=== PATIENT | female | born 1960 | race Caucasian/White ===

== ENCOUNTER 2020-09-28 11:59 | Emergency (ER) | payer MEDICARE, MEDICAID, SELFPAY ==
[2020-09-28 14:39] VITALS: BP 121/61; PULSE 74; RESP 18; TEMP 36.9; O2SAT 93; BMI 32.1
--- NOTE | 2020-09-28 14:51 | PC.NURSE ---
patient a&o to baseline, caregiver from [facility] at bedside, vitals stable, rectal exam performed by provider, will continue to monitor.
--- NOTE | 2020-09-28 15:08 | ECG_ITS ---
Test Reason : WEAKNESS Blood Pressure : / mmHG Vent. Rate : 072 BPM Atrial Rate : 072 BPM P-R Int : 196 ms QRS Dur : 100 ms QT Int : 426 ms P-R-T Axes : 044 -24 050 degrees QTc Int : 466 ms Normal sinus rhythm Low voltage QRS Incomplete right bundle branch block Nonspecific T wave abnormality Left axis deviation Abnormal ECG No previous ECGs available Referred By: Guerita Sexton Electronically Signed By:ANGELA DEL RIO MD
--- NOTE | 2020-09-28 15:10 | ED_ITS ---
HPI - General Adult General Chief complaint: General Medical Stated complaint: ? UTI, BLACK STOOL Time Seen by Provider: 09/28/20 14:29 Source: patient Mode of arrival: wheelchair History of Present Illness HPI narrative: 59-year-old female with a past medical history of confusion, seizures, right-sided paralysis wheelchair-bound, expressive aphasia, depression, seizures, multiple UTI's presenting [facility], sent in by PCP for evaluation of dysuria, dark urine, black stools, diarrhea, poor p.o. intake/decreased appetite x a few days. Patient also reports intermittent headaches and abdominal pain. Denies fever, chills, CP/SOB, exposure to COVID- 19 Denies taking anticoagulation Onset (ago): day(s) Related Data Allergies Allergy/AdvReac Type Severity Reaction Status Date / Time No Known Allergies Allergy Verified 09/28/20 15:07 Review of Systems Review of Systems: Constitutional: No Fever, No Chills, No Fatigue, No Malaise, +anorexia Cardiovascular: No Chest Pain, No SOB, No Dyspnea on Exertion, No Edema Respiratory: No Cough, No Sputum, No Wheezing, No Dyspnea Gastrointestinal: No Nausea, No Vomiting, + Diarrhea, No Constipation, +Abd ominal pain, +black stool Genitourinary: No irregular bleeding, +Dysuria, No Urinary Frequency, No H ematuria Musculoskeletal: No joint pain, No Myalgias, No Joint Swelling Skin: No Skin Lesions, No rash Neuro: No Weakness, No Numbness, No Paresthesias,+ Headache Yes all other systems are reviewed and are negative Neurologic: Reports confusion Psychiatric: Psychiatric: Reports confusion PMFSH Past Medical History Attestation statement: The following information was validated with the patient. Medical History (Updated 09/28/20 @ 18:49 by EMILY Fry) Confusion Constipation Depression Expressive aphasia Iron deficiency Paralysis of right lower extremity Paralysis of right upper extremity Seizures UTI (urinary tract infection) Social History Social History Alcohol intake: never Smoked in Last 30 Days: No Use of substances other than those prescribed or required for medical reasons: No Advance Directives: No Advance Directives Information Provided: Yes Physical Exam Vital Signs: Vital Signs: Last Vital Signs Temp 98.3 F 09/28/20 19:41 Pulse 66 09/28/20 19:41 Resp 18 09/28/20 19:41 BP 132/67 09/28/20 19:41 Pulse Ox 99 09/28/20 19:41 Body Mass Index 32.1 Const: General: cooperative and confusion Orientation/consciousness: confus ion Limitations: no limitations HENMT: Head: Yes normal to inspection Ears: hearing grossly normal bilaterally General nose exam: Normal external nose present Face and sinus: Yes normal facial exam Eyes: General: appearance normal, both eyes and all related structures EOM: EOMs intact bilaterally Neck: Neck: Yes normal visual inspection Resp: Effort & Inspection: normal respiratory effort Auscultation: clear to auscultation bilaterally Cardio: Rate: regular rate Heart sounds: S1 normal heart sound present and S2 normal heart sound present GI: Inspection: Yes normal to inspection Palpation (GI): Soft to palpation, Tenderness to palpation present (GI) suprapubicly, no guarding and not rigid : General: Yes no CVA tenderness Back/Spine/Pelvis: Back: no CVA tenderness Skin: Rashes: no rashes Wounds: no wounds Neuro: General: confusion Extrem: General: Yes normal to inspection Course Course Course Narrative: -H&H stable, no leukocytosis, labs otherwise unremarkable --occult stool positive > will obtain CT AP -1844--CT without evidence of active GI bleeding. Right lower pole renal mass with CT features consistent with benign angiomyolipoma -2030--UA negative > plan to DC patient home back to [facility] Worrisome signs and symptoms and strict return precautions discussed with patient and staff member at bedside, they verbalized understanding of feel safe for discharge home to follow-up with GI Medical Decision Making MDM Narrative Medical decision making narrative: 59-year-old female with a past medical histor y of confusion, seizures, right-sided paralysis wheelchair-bound, expressive aphasia, depression, seizures, multiple UTI's presenting [facility], sent in by PCP for evaluation of dysuria, dark urine, black stools, diarrhea, poor p.o. intake/decreased appetite x a few days. On exam VSS, NAD/well- appearing abdomen soft with suprapubic/lower ttp, no rebound or guarding. No CVAT. Concern for UTI vs GI bleed vs viral syndrome/COVID-19 vs dehydration. Lower concern for appendicitis/diverticulitis, or cholecystitis/pancreatitis Plan: Labs, UA, occult stool, COVID-19, IVF, reassess Lab Data Result diagrams: 09/28/20 15:31 09/28/20 15:31 Labs: Lab Results 09/28/20 09/28/20 09/28/20 Range/Units 15:31 15:31 15:31 WBC 6.1 (4.8-10.8) X10*3/uL RBC 4.51 (4.20-5.50) X10*6/uL Hgb 12.1 (12.0-16.0) g/dl Hct 40.1 (37-47) % MCV 88.9 (80-98) fL MCH 26.8 L (27.0-33.0) pg MCHC 30.2 L (31.0-35.0) g/dl RDW 24.0 H (11.0-16.0) % Plt Count 213 (160-400) X10*3/uL MPV 10.2 (9.4-12.3) fL Immature Gran % (Auto) 0.2 (0.0-0.4) % Neut % (Auto) 65.4 (45-73) % Lymph % (Auto) 25.1 (20-40) % [place] % (Auto) 6.8 (2-11) % Eos % (Auto) 2.0 (0-4) % Baso % (Auto) 0.5 (0-2) % Lymph # (Auto) 1.5 (1.2-4.9) X10*3/uL [place] # (Auto) 0.4 (0.1-1.2) X10*3/uL Eos # (Auto) 0.1 (0.0-0.4) X10*3/uL Baso # (Auto) 0.0 (0.0-0.2) X10*3/uL Abs Immat Gran (auto) 0.01 (0.00-0.03) X10*3/uL Absolute Neuts (auto) 4.0 (2.0-8.3) X10*3/uL Absolute Nucleated RBC 0.000 (0.0-0.012) X10*3/uL Nucleated RBC % (auto) 0.0 (0.0-0.2) /100WBC Hold Blue Top SEE NOTE Sodium 140 (135-145) mmol/L Potassium 3.8 (3.3-5.1) mmol/l Chloride 108 (96-108) mmol/L Carbon Dioxide 23 (22-29) mmol/L Anion Gap 13 (12-20) BUN 15 (9-16) mg/dL Creatinine 1.06 (0.5-1.4) mg/dL Estim Creat Clear Calc 67.7 Estimated GFR 53 Random Glucose 81 (60-115) mg/dL Calcium 9.2 (8.4-10.2) mg/dL Magnesium 2.0 (1.6-2.6) mg/dL Total Bilirubin 0.4 (0.0-1.0) mg/dL Direct Bilirubin 0.2 (0.0-0.5) mg/dL AST 15 (5-31) U/L ALT 16 (0-31) U/L Alkaline Phosphatase 99 (39-117) U/L Total Protein 6.9 (6.5-8.0) g/dL Albumin 4.2 (3.5-5.0) g/dL Lipase 47 (8-78) U/L Urine Color Urine Appearance Urine pH (5.0-8.0) Ur Specific [place] (1.005-1.025) Urine Protein (NEG-TRACE) MG/DL Urine Glucose (UA) (NEG) MG/DL Urine Ketones (NEG) MG/DL Urine Blood (NEG) Urine Nitrite (NEG) Ur Leukocyte Esterase (NEG) Urine RBC (0) /HPF Urine WBC (0-4) /HPF Ur Squamous Epith Cells /LPF Urine Bacteria /LPF Stool Occult Blood (NEG) Coronavirus (PCR) (Negative) Influenza Type A (PCR) (Negative) Influenza Type B (PCR) (Negative) RSV RNA Qual (PCR) (Negative) 09/28/20 09/28/20 09/28/20 Range/Units 15:31 15:31 19:20 WBC (4.8-10.8) X10*3/uL RBC (4.20-5.50) X10*6/uL Hgb (12.0-16.0) g/dl Hct (37-47) % MCV (80-98) fL MCH (27.0-33.0) pg MCHC (31.0-35.0) g/dl RDW (11.0-16.0) % Plt Count (160-400) X10*3/uL MPV (9.4-12.3) fL Immature Gran % (Auto) (0.0-0.4) % Neut % (Auto) (45-73) % Lymph % (Auto) (20-40) % [place] % (Auto) (2-11) % Eos % (Auto) (0-4) % Baso % (Auto) (0-2) % Lymph # (Auto) (1.2-4.9) X10*3/uL [place] # (Auto) (0.1-1.2) X10*3/uL Eos # (Auto) (0.0-0.4) X10*3/uL Baso # (Auto) (0.0-0.2) X10*3/uL Abs Immat Gran (auto) (0.00-0.03) X10*3/uL Absolute Neuts (auto) (2.0-8.3) X10*3/uL Absolute Nucleated RBC (0.0-0.012) X10*3/uL Nucleated RBC % (auto) (0.0-0.2) /100WBC Hold Blue Top Sodium (135-145) mmol/L Potassium (3.3-5.1) mmol/l Chloride (96-108) mmol/L Carbon Dioxide (22-29) mmol/L Anion Gap (12-20) BUN (9-16) mg/dL Creatinine (0.5-1.4) mg/dL Estim Creat Clear Calc Estimated GFR Random Glucose (60-115) mg/dL Calcium (8.4-10.2) mg/dL Magnesium (1.6-2.6) mg/dL Total Bilirubin (0.0-1.0) mg/dL Direct Bilirubin (0.0-0.5) mg/dL AST (5-31) U/L ALT (0-31) U/L Alkaline Phosphatase (39-117) U/L Total Protein (6.5-8.0) g/dL Albumin (3.5-5.0) g/dL Lipase (8-78) U/L Urine Color YELLOW Urine Appearance HAZY Urine pH 6.0 (5.0-8.0) Ur Specific [place] 1.010 (1.005-1.025) Urine Protein NEG (NEG-TRACE) MG/DL Urine Glucose (UA) NEG (NEG) MG/DL Urine Ketones NEG (NEG) MG/DL Urine Blood TRACE (NEG) Urine Nitrite NEG (NEG) Ur Leukocyte Esterase NEG (NEG) Urine RBC 5-9 H (0) /HPF Urine WBC 0 (0-4) /HPF Ur Squamous Epith Cells 3+ /LPF Urine Bacteria 2+ /LPF Stool Occult Blood POS (NEG) Coronavirus (PCR) NEGATIVE (Negative) Influenza Type A (PCR) NEGATIVE (Negative) Influenza Type B (PCR) NEGATIVE (Negative) RSV RNA Qual (PCR) NEGATIVE (Negative) Discharge Plan Discharge Clinical Impression: Occult blood in stools Patient Disposition: Home, Self-Care Instructions: Rectal Bleeding (ED) Additional Instructions: Your blood work was reassuring today in the ED Your stool did show hidden blood in it You need to follow-up with a GI specialist within the week You likely need a endoscopy and colonoscopy to further evaluate If her symptoms persist or worsen, you have a large bloody bowel movement, or large bowel movements of dark stool, become lightheaded or dizzy, or of chest pain shortness of breath, or abdominal pain you need to return to the ED immediately Referrals: Mingo Albright MD [Physician] - 5 days
[2020-09-28] MEDS: 0.9 % Sodium Chloride 1,000 ML 999 ML IVCONT (15:33)
--- NOTE | 2020-09-28 15:33 | PC.NURSE ---
iv inserted, labs drawn, covid swab performed, ekg performed, vss, caregiver at bedside, will contiue to monitor.
[2020-09-28 15:49] LABS: MANUAL DIFF FLAG NO; OBS Int Ctl Valid YES; OBS1 POS (NEG)
[2020-09-28 16:13] LABS: Hematocrit 40.1 % (37-47); Hemoglobin 12.1 g/dl (12.0-16.0); Imm Gran Pct Auto 0.2 % (0.0-0.4); Mean Corpuscular HGB Conc 30.2 g/dl (31.0-35.0); Mean Corpuscular Hemoglobin 26.8 pg (27.0-33.0); Mean Corpuscular Volume 88.9 fL (80-98); Mean Platelet Volume 10.2 fL (9.4-12.3); Neutrophils Percent Auto 65.4 % (45-73); Platelet Count 213 X10*3/uL (160-400); Red Blood Count 4.51 X10*6/uL (4.20-5.50); White Blood Count 6.1 X10*3/uL (4.8-10.8)
[2020-09-28 16:14] LABS: Basophils Percent Auto 0.5 % (0-2); Eosinophils Absolute Auto 0.1 X10*3/uL (0.0-0.4); Imm Gran Abs Auto 0.01 X10*3/uL (0.00-0.03); Lymphocytes Absolute Auto 1.5 X10*3/uL (1.2-4.9); Lymphocytes Percent Auto 25.1 % (20-40); Monocytes Absolute Auto 0.4 X10*3/uL (0.1-1.2); Monocytes Percent Auto 6.8 % (2-11)
[2020-09-28 16:22] LABS: Alanine Aminotransferase 16 U/L (0-31); Albumin Level 4.2 g/dL (3.5-5.0); Alkaline Phosphatase 99 U/L (39-117); Anion Gap 13 (12-20); Aspartate Amino Transferase 15 U/L (5-31); Bilirubin Direct 0.2 mg/dL (0.0-0.5); Bilirubin Total 0.4 mg/dL (0.0-1.0); Blood Urea Nitrogen 15 mg/dL (9-16); Calcium 9.2 mg/dL (8.4-10.2); Carbon Dioxide 23 mmol/L (22-29); Chloride 108 mmol/L (96-108); Creatinine Clr Calc Pharmacy 67.7; Estimated Glomerular Filt Rate 53; Glucose Random 81 mg/dL (60-115); Lipase 47 U/L (8-78); Potassium 3.8 mmol/l (3.3-5.1); Sodium 140 mmol/L (135-145); Total Protein 6.9 g/dL (6.5-8.0)
--- NOTE | 2020-09-28 16:32 | CT_ITS ---
EXAMINATION: CT ABDOMEN AND PELVIS WITH CONTRAST CLINICAL INFORMATION: GI bleeding COMPARISON: None TECHNIQUE: Multidetector volumetric images were obtained from the superior aspect of the liver through the pubic symphysis following administration 85 mL of Omnipaque 350 intravenous contrast. Sagittal and coronal reformatted images were obtained on the technologist's workstation. Oral contrast: No This CT examination was performed using dose optimization techniques as appropriate, variously including the following: *Automated exposure control *Adjustment of mA and/or kV according to patient size (this includes techniques or standardized protocols for targeted exams where dose is matched to indication/reason for exam; i.e. extremities or head) *Use of iterative reconstruction technique DLP: 1139 mGy-cm FINDINGS: LUNG BASES: The visualized lung bases are unremarkable. Small nonenlarged right preparacardiac lymph nodes are present. LIVER, GALLBLADDER, AND BILIARY TREE: The liver is normal in size, shape, and attenuation. No focal hepatic lesion or biliary ductal dilatation is present. The gallbladder is unremarkable with no evidence of radiopaque gallstones, gallbladder wall thickening, or obvious pericholecystic inflammatory changes. PANCREAS: Unremarkable. SPLEEN: Unremarkable. ADRENAL GLANDS: Unremarkable. KIDNEYS AND URETERS: The kidneys are normal in size, shape, and attenuation. There is a mass present at the right lower pole measuring 2.5 x 2.2 x 2.4 cm. The mass contains soft tissue density fat density and some punctate calcium and is consistent with a benign angiomyolipoma. No other renal masses are seen. No hydronephrosis, hydroureter, or calculi seen. No perinephric stranding. BLADDER: The bladder wall is symmetrically thickened but no masses or calcifications seen GASTROINTESTINAL TRACT: Scattered colonic diverticula are present without diverticulitis. The small and large bowel are unremarkable. The appendix is unremarkable. No evidence of active bleeding seen without extravasation of contrast into bowel lumen. . ABDOMINAL WALL: No significant hernia is appreciated. Tiny periumbilical hernia seen containing only fat. LYMPH NODES: No retroperitoneal lymphadenopathy is present. VASCULAR: Infrarenal calcific aortoiliac calcified plaque is present. No aneurysm is seen. PELVIC VISCERA: Patient status post hysterectomy with no abnormal mass or free pelvic fluid seen OSSEOUS STRUCTURES: Degenerative changes present at L5-S1. CT/CT abdomen pelvis w con IMPRESSION: 1. No evidence of active GI bleeding. 2. Right lower pole renal mass with CT features consistent with benign angiomyolipoma 3. Colonic diverticulosis without diverticulitis 4. Status post hysterectomy
[2020-09-28 16:47] LABS: Influenza A PCR NEGATIVE (Negative); Influenza B PCR NEGATIVE (Negative); Resp Syncy Virus RNA Qual PCR NEGATIVE (Negative); SARS COV2 PCR INHOUSE NEGATIVE (Negative)
--- NOTE | 2020-09-28 17:39 | PC.NURSE ---
PT TO CT SCAN
[2020-09-28] MEDS: iohexoL 350 MG/ML 100 ML INFUS..BTL IV (17:49)
[2020-09-28 18:28] VITALS: BP 141/72; PULSE 67; RESP 18; TEMP 36.7; O2SAT 94
--- NOTE | 2020-09-28 18:29 | PC.NURSE ---
patient alert to baseline, pt attempted to use bedpan as she felt she needed to urinate- pt had been incontinent of urine prior to using the bedpan, vials stable, caregiver at bedside, will continue to monitor.
[2020-09-28 19:41] VITALS: BP 132/67; PULSE 66; RESP 18; TEMP 36.8; O2SAT 99
[2020-09-28 19:48] LABS: Glucose Urine UA NEG (NEG); Leukocyte Esterase Urine NEG (NEG); Nitrite Urine NEG (NEG); Urine Blood TRACE (NEG); Urine Ketones NEG (NEG); Urine Protein NEG (NEG-TRACE)
[2020-09-28 19:50] LABS: Appearance Urine HAZY; Color Urine YELLOW
[2020-09-28 19:54] LABS: Bacteria Urine 2+ /LPF; Squamous Epithelial Cell Urine 3+ /LPF; WBC Urine 0 /HPF (0-4)
== END 2020-09-28 21:06 | disposition home or self-care (01) ==
PROVIDERS: Physician Assistant; Emergency Provider Internal Medicine
DX: K92.1 Melena (principal); R10.9 Unspecified abdominal pain; R51.9 Headache, unspecified; Z20.828 Contact with and (suspected) exposure to other viral communicable diseases
CPT/HCPCS: 0241U; 36415; 74177; 80048; 80076; 81001; 82272; 83690; 83735; 85025; 93005; 96360; 99284; Q9967

== ENCOUNTER → 2020-10-05 12:27 | Outpatient (BNVA) | payer MEDICARE, MEDICAID, SELFPAY | PROVIDERS: Visit Provider Physician Assistant | DX: K62.5 Hemorrhage of anus and rectum (principal) | CPT/HCPCS: 99212 ==